=== PATIENT | female | born 1960 | race Two or more races ===

== ENCOUNTER 2022-05-27 18:47 | Emergency (ER) | payer SELFPAY ==
[~2022-05-27] VITALS: Ht 157.5 cm; Wt 117.9 kg
--- NOTE | 2022-05-27 19:00 | NUR ---
PT SEEN BY DR WEEKS FOR EVAL
--- NOTE | 2022-05-27 19:11 | NUR ---
PARAMEDICS THAT BROUGHT PT TO HOSPITAL SPOKE W/ DR. WEEKS AND FAMILY WAS CONTACTED AND MADE AWARE OF PT BEING DISCHARGE. OK TO D/C HOME WHEN FAMILY COMES PER DR WEEKS.
[2022-05-27 19:20] VITALS: BP 162/79
--- NOTE | 2022-05-27 20:28 | NUR ---
PT IS STABL FOR D/C; WAS PICKED UP BY FAMILY IN STABL CONDITION. Patient discharged to home in stable condition. Written and verbal after care instructions given. Patient and family verbalized understanding of instruction.
== END 2022-05-27 20:45 | disposition home or self-care (01) ==
LOC: ER 18:51
DX: T40.711A Poisoning by cannabis, accidental (unintentional), initial encounter (principal); R42 Dizziness and giddiness; F12.929 Cannabis use, unspecified with intoxication, unspecified; I10 Essential (primary) hypertension; Y92.89 Other specified places as the place of occurrence of the external cause